=== PATIENT | male | born 1965 | race Caucasian/White ===

== ENCOUNTER → 2023-09-06 09:18 | Outpatient (REF) | payer MEDICARE, SELFPAY | LOC: HWRAD 09:18 | PROVIDERS: ATTENDING PHYSICIAN Internal Medicine Hematology & Oncology; FAMILY PHYSICIAN Family Medicine | DX: C91.10 Chronic lymphocytic leukemia of B-cell type not having achieved remission (principal); C83.00 Small cell B-cell lymphoma, unspecified site | CPT/HCPCS: 71260; 74177; Q9967 ==

== ENCOUNTER → 2024-09-28 06:51 | Outpatient (REF) | payer MEDICARE, SELFPAY | LOC: RAD 06:51 | PROVIDERS: ATTENDING PHYSICIAN Internal Medicine Hematology & Oncology; FAMILY PHYSICIAN Family Medicine | DX: C91.10 Chronic lymphocytic leukemia of B-cell type not having achieved remission (principal); C83.00 Small cell B-cell lymphoma, unspecified site | CPT/HCPCS: 71260; 74177; Q9967 ==

== ENCOUNTER 2025-01-24 11:00 | Emergency (ER) | payer MEDICARE, SELFPAY ==
[2025-01-24 11:07] VITALS: BP 151/82
--- NOTE | 2025-01-24 11:35 | EDRN ---
Dr. Murphy in room w/pt.
[2025-01-24 12:00] VITALS: BP 142/96; BMI 42.3
[2025-01-24 12:06] LABS: Hematocrit 42.9 % (39.0-52.0); Hemoglobin 14.0 g/dL (13.0-18.0); Mean Corp Hgb Conc. 32.6 g/dL (33.0-37.0); Mean Corpuscular Volume 81.3 fL (80.0-94.0); Nucleated Red Blood Cells % 0 % (-); Platelet Count 250 10^3/uL (130-400); Red Cell Dist. Width 14.0 % (11.5-14.5)
--- NOTE | 2025-01-24 12:12 | ED.GENMED ---
History of Present Illness
General
Chief Complaint: Skin Problem
Source: patient
Exam Limitations: none
Time Seen by Provider: 01/24/25 11:30
History of Present Illness
History of Present Illness:
See MDM
Past History
Past History
ED Past Medical History: HTN, NIDDM (Borderline) and Other (Microcytic anemia)
ED Past Surgical History: Orthopedic and Other (Left inguinal herniorrhaphy)
Social History
Tobacco: Non-smoker
Alcohol: None
Living: with family
Employment: Employed
Family History
Family History: Other (Breast cancer); Negative Early CAD or CAD
Phy Exam
Physical Exam
Physical Exam:
See MDM
Sepsis
Sepsis Screening
Sepsis Assessment: Sepsis Ruled Out
Sepsis Screen
Sepsis Screen: Sepsis Ruled Out
Date: 01/24/25
Time: 12:54
Course
Orders/Labs/Results
Orders:
Orders
01/24/25 12:00
Complete Blood Count/With Diff Urgent
Comprehensive Metabolic Panel Urgent
01/24/25 12:13
Clindamycin 600 mg/50 ml [Cleocin] 600 mg in 50 ml IV NOW
Abnormal Lab Results
01/24/25
12:00
MCH 26.5 L pg
(27.0-31.0)
MCHC 32.6 L g/dL
(33.0-37.0)
Lymphocytes % 17.1 L %
(20.5-51.1)
Glucose 143 H mg/dl
(70-99)
01/24/25 12:00
01/24/25 12:00
Vital Signs
Initial and Last Documented VS:
Initial Vital Signs
Temp Pulse Resp BP Pulse Ox
98.2 F 65 18 151/82 97
01/24/25 11:07 01/24/25 11:07 01/24/25 11:07 01/24/25 11:07 01/24/25 11:07
Last Documented Vital Signs
Temp Pulse Resp BP Pulse Ox
98.2 F 65 16 142/96 97
01/24/25 11:07 01/24/25 12:00 01/24/25 12:00 01/24/25 12:00 01/24/25 12:14
MDM/Problems Addressed
Differential Diagnosis Includes:
Note:
CHIEF COMPLAINT(S)
Dog bite to the hand.
HISTORY OF PRESENT ILLNESS
The patient is a 59-year-old male who presents following a dog bite sustained while attempting to separate his dog from another dog. The incident occurred on Saturday. The patient initially managed the bite with doxycycline and mupirocin cream as
prescribed by his primary care physician, Dr. Liam Bill. Despite antibiotic therapy, he reports that the infection has worsened. The most affected site involves multiple puncture wounds on his hand, with one particularly concerning wound. The
patient describes experiencing a little pressure pain but denies significant swelling or auto-flexion that would indicate flexor tenosynovitis. The patient reports an allergy to penicillin, having experienced severe reactions in childhood,
characterized by hives and throat swelling. Previous notes indicate a reaction to amoxicillin resulting in rash and swelling.
ALLERGIES
Penicillin: Severe reaction causing hives and throat tightening.
Amoxicillin: Rash and swelling.
MEDICATIONS
Doxycycline
Mupirocin cream
PHYSICAL EXAM
General: Alert, no acute distress.
Skin: Warm, dry.
Head: Normocephalic, atraumatic
Neck: Appears supple, trachea midline.
Eyes, Ears, Nose, Mouth, and Throat: Oral mucosa moist.
Cardiovascular: No signs of cyanosis
Respiratory: Respirations are non-labored.
Abdomen: Non-distended
Musculoskeletal: Small cut to pulp of his ring finger but no cellulitic changes. Very mild swelling to the base of the ring finger digit but he has no [place] signs. The finger is otherwise neurovascularly intact
Neurological: No focal neurological deficit observed.
Psychiatric: Cooperative, appropriate mood and affect.
PLAN
1. Administer a dose of IV clindamycin to manage the infection due to penicillin and amoxicillin allergies.
2. Prescribe clindamycin for ongoing antibiotic therapy.
3. Referral to field applications specialist Dr. Tony Cardoza for further evaluation of the hand.
4. Monitor for any signs of worsening infection or development of flexor tenosynovitis.
DIFFERENTIAL DIAGNOSIS
The Differential Diagnosis includes, in no particular order and is not limited to:
1. Cellulitis
2. Deep space infection
3. Flexor tenosynovitis
4. Osteomyelitis
5. Bite wound infection
6. Abscess formation
7. Septic arthritis
8. Allergic reaction to medication
9. Tendon laceration
10. Foreign body infection
SUMMARY OF ENCOUNTER
The patient is a 59-year-old male presenting to the emergency department due to a worsening infection from a dog bite to the hand. The patient had been managing the bite with doxycycline and mupirocin cream as prescribed but reported a worsening
condition. Given his allergy to penicillin and amoxicillin, a decision was made to administer IV clindamycin to manage the infection. During reassessment, the patient continued to appear well. The risks, particularly, the potential for developing
flexor tenosynovitis, were discussed with the patient.
ASSESSMENT
The patient is at risk for a worsening infection with a specific concern for the development of flexor tenosynovitis and other bite-related complications.
EMERGENCY TREATMENTS ADMINISTERED
IV clindamycin was administered due to the patients penicillin and amoxicillin allergies.
PLAN
1. Transition from doxycycline to clindamycin for ongoing antibiotic therapy.
2. Educated patient about recognizing signs of worsening infection or flexor tenosynovitis.
3. Referral to an field applications specialist for evaluation and management of potential complications in the hand.
FOLLOW-UP INSTRUCTIONS
The patient was advised to follow up with an field applications specialist promptly for further assessment and management of his hand condition.
MEDICATION RECONCILIATION
1. Clindamycin - administered as an IV dose in the emergency department.
2. Clindamycin - prescribed for outpatient antibiotic therapy.
MEDICAL DECISION MAKING
- Number and Complexity of Problems Addressed: The patients existing allergic reactions to penicillin and amoxicillin affected the choice of antibiotic therapy. The differential diagnosis included cellulitis, deep space infection, flexor
tenosynovitis, osteomyelitis, bite wound infection, abscess formation, septic arthritis, allergic reaction to medication, tendon laceration, and foreign body infection.
- Data:
Category 1: The patients history of penicillin and amoxicillin allergies were reviewed to tailor antibiotic therapy appropriately.
Category 2: No independent radiology tests were required; management centered on antibiotic adjustment and specialist referral.
Category 3: A discussion about management and potential risks, including the development of flexor tenosynovitis, was held with the patient.
-Risk: The patient was educated on recognizing signs of worsening infections and the importance of follow-up with orthopedics, given the complexities associated with bite wounds and infection risk.
DIAGNOSIS
1. L03.113 - Cellulitis of right upper limb due to dog bite
2. T19.1XXA - Foreign body in right hand, initial encounter
*Pulse Oximetry
SaO2: 97
Oxygen Mode of Delivery: Room air
Patient hypoxic: no
*Critical Care Note
Total Time (30-74mins, 75-104mins- exclusive of procedures): Not Applicable
ED Attending Note
-
Portions of this chart may have been created with voice recognition software.� Occasional wrong word or��sound alike� substitutions may have occurred due to the inherent limitations of voice recognition software.
Discharge Plan
Departure
Patient Disposition: Home (Routine Discharge)
Date of Disposition: 01/24/25
Time of Disposition: 12:49
Patient with high blood pressure during this ER visit?: Yes
Discharge Problem:
Finger infection
Instructions: Cellulitis (Skin Infection), Adult (DC)
Prescriptions:
New
clindamycin HCl 300 mg capsule
300 mg PO TID 7 Days Qty: 21 0RF
No Action
atenolol 100 MG tablet
100 mg PO HS
nifedipine 30 MG tablet extended release
30 mg PO DAILY
aspirin 81 MG tablet,delayed release (DR/EC)
81 mg PO DAILY
baclofen 10 MG tablet
10 mg PO PRN PRN (Reason: muscle spasms)
ibuprofen 600 MG tablet
600 mg PO Q6HPRN PRN (Reason: pain)
geriatric [id number] [Spectravite Senior] 1 EACH tablet
1 ea PO
saw palmetto 450 MG capsule
450 mg PO .@1700
Referrals:
Tony Cardoza MD [Active, Orthopedics]
Lawrence Bill DO [Family Provider]
Activity Restrictions/Additional Instructions:
Watch for worsening signs of infection: fever over 100.5', increasing pain, red streaks around wound, swelling, or increasing drainage of pus. If any of these happen, return to ED promptly. Make sure that you take all your antibiotics as directed
and finish your prescription even if you feel better before the bottle is empty
You may return at any time if you have further concerns.
Please follow up with the orthopedist at the first available appointment, preferably this week.
Thank you for choosing [facility].
Interventions
Interventions:
*Risk Screen - Suicide Last Done: 01/24/25 11:07
*General Assessment Last Done: 01/24/25 12:00
*Neglect/Abuse Screening Last Done: 01/24/25 12:00
*ED- Fall Risk Assessment Last Done: 01/24/25 12:00
*ED COVID-19 Vaccine History Last Done: 01/24/25 12:00
ED-Skin Assessment Last Done: 01/24/25 12:00
Discharge Date and Time
Print Language: ICELANDIC
--- NOTE | 2025-01-24 12:17 | EDRN ---
Pharmacy called to mix and send clindamycin.
[2025-01-24 12:21] LABS: ALT (SGPT) 22 U/L (0-50); AST (SGOT) 22 U/L (17-59); Albumin 4.6 g/dl (3.5-5.0); Alkaline Phosphatase 47 U/L (38-126); Blood Urea Nitrogen 14 mg/dl (9-20); Calcium 9.6 mg/dl (8.4-10.2); Carbon Dioxide 26 mmol/L (22-30); Chloride 107 mmol/L (98-107); Glucose 143 mg/dl (70-99); Potassium 4.4 mmol/L (3.5-5.1); Sodium 141 mmol/L (135-145); Total Protein 7.4 g/dl (6.3-8.2); eGFR > 60.00
[2025-01-24] MEDS: CLEOCIN 50 IV (12:35)
== END 2025-01-24 13:03 | disposition home or self-care (01) ==
LOC: EMR 11:00
PROVIDERS: EMERGENCY PHYSICIAN Student in an Organized Health Care Education/Training Program; FAMILY PHYSICIAN Family Medicine
DX: L08.9 Local infection of the skin and subcutaneous tissue, unspecified (principal); I10 Essential (primary) hypertension; R73.03 Prediabetes; W54.0XXA Bitten by dog, initial encounter; Z88.0 Allergy status to penicillin; Z88.8 Allergy status to other drugs, medicaments and biological substances; Z79.82 Long term (current) use of aspirin
CPT/HCPCS: 99284; 96365; 80053; 85025

== ENCOUNTER 2025-01-24 23:11 | Inpatient (IN) | payer MEDICARE, SELFPAY ==
[2025-01-24 20:56] VITALS: BP 172/96
[2025-01-24 21:30] VITALS: BMI 42.9
--- NOTE | 2025-01-24 22:10 | ED.SKININJ ---
HPI-Injury
General
Chief Complaint: Bite
Source: patient
Time Seen by Provider: 01/24/25 21:29
History of Present Illness-Injury
Initial Injury comments:
Note:
CHIEF COMPLAINT(S)
Dog bite on left hand with increased swelling and redness.
HISTORY OF PRESENT ILLNESS
The patient is a 59-year-old male who presents with a dog bite to his left hand sustained on Saturday while breaking up a fight between his dog and another dog. He reports being bitten in four places on the left hand. The most concerning bite is on
the left fourth finger, described as deeper with increasing swelling and redness. Initial management included doxycycline 100 mg twice daily prescribed by his primary care physician and subsequent clindamycin after evaluation at urgent care, where
an X-ray was performed to rule out bony injury. The patient has a known penicillin allergy. Despite oral antibiotics, swelling has progressed rapidly, prompting the current ER visit. The patient denies any fever and has been monitoring his
temperature regularly, with no reported elevations. There is swelling on the palm, with some redness extending beyond the metacarpophalangeal joint, but no pain with passive extension or palpation of the flexor tendon.
ADDITIONAL HISTORY OBTAINED FROM SOURCES OTHER THAN THE PATIENT
According to urgent care records and discussions with Dr. Murphy, the patient was recommended to receive further evaluation and treatment due to concerns about the severity of the infection and potential flexor tenosynovitis.
SOCIAL DETERMINANTS AFFECTING HEALTH
The patient discussed handling responsibilities related to the dog attack, indicating potential family stress as a factor in health management decisions.
MEDICATIONS
- Doxycycline 100 mg twice daily
- Clindamycin (current dosage and exact time of last dose not specified)
REVIEW OF SYSTEMS
- Skin: Redness and swelling at the site of the dog bite on the left hand; no other systemic skin issues reported
- Musculoskeletal: Reports swelling in the palm of the left hand with increased redness; denies pain with passive finger movement
- General: Denies fever; monitoring shows no temperature elevation
PHYSICAL EXAM
General: Alert, no acute distress.
Skin: Warm, dry. Notable for swelling and redness on the left fourth digit, extending past the metacarpophalangeal joint.
Head: Normocephalic, atraumatic.
Neck: Supple, trachea midline.
Eye Ears, nose, mouth and throat: Oral mucosa moist.
Cardiovascular: Normal peripheral perfusion, no edema.
Respiratory: Respirations are non-labored.
Gastrointestinal: Abdomen nondistended.
Back: Normal range of motion, normal alignment.
Musculoskeletal: Redness and swelling noted over the left fourth digit without pain on passive extension or palpation of flexor tendon. Normal digits otherwise.
Neurological: Alert and oriented to person, place, time, and situation. No focal neurological deficit observed.
Psychiatric: Cooperative, appropriate mood & affect.
PROBLEM LIST
Acute Problems:
- Dog bite to the left hand
- Potential infection, possible flexor tenosynovitis
PLAN
1. Hospital admission for intravenous antibiotic therapy to ensure better delivery and effectiveness (considered due to increased swelling and redness despite oral antibiotics).
2. Monitor infection closely with regular assessments of swelling and redness to determine the effectiveness of IV antibiotics.
3. Consult infectious disease and orthopedics if significant changes are observed during monitoring.
4. Consider allergy testing for penicillin in the future to confirm current allergy status, given its implications for treatment options.
DIFFERENTIAL DIAGNOSIS
The Differential Diagnosis includes, in no particular order and is not limited to:
1. Cellulitis
2. Abscess formation
3. Flexor tenosynovitis
4. Foreign body
5. Septic arthritis
6. Osteomyelitis
7. Tendon injury
8. Bite wound infection
9. Soft tissue infection
10. Joint infection (Pyogenic arthritis)
Disposition:
SUMMARY OF ENCOUNTER
The patient, a 59-year-old male, presented to the emergency department with worsening swelling and redness of his left hand due to a dog bite sustained several days ago. Initial management with oral antibiotics, doxycycline. was then switched to
clindamycin today. Despite this, the patient experienced increasing symptoms, particularly increased swelling of the left fourth finger. Since the swelling has progressed despite treatment, intravenous antibiotics were considered necessary to
ensure therapeutic efficacy. The patient received a dose of clindamycin earlier and will be started on levofloxacin in addition to clindamycin for comprehensive antibiotic coverage and admitted for close monitoring. Prior to this was only on single
regimen coverage. May benefit from hand surgery evaluation if symptoms progress
DISPOSITION
Admit
PLAN
1. Admission to hospital for intravenous antibiotic therapy including levofloxacin in addition to previously administered clindamycin for the treatment of the progressing infection.
2. Regular monitoring of the swelling and redness to assess treatment efficacy and response to medications.
3. Recommendation for consultation with a hand specialist if symptoms do not improve or worsen during hospitalization.
INDEPENDENT REVIEW OF LABS AND INTERPRETATION OF TESTS
My independent review indicates that the patients laboratory results from an external review showed a normal white blood cell count and normal chemistries.
MEDICATION RECONCILIATION
1. Clindamycin (administered earlier in the day).
2. Start intravenous levofloxacin for enhanced antibiotic coverage.
MEDICAL DECISION MAKING
-Complexity of Data Reviewed:
Chronic conditions affecting care include potential infection and possible flexor tenosynovitis. Differential diagnoses considered are cellulitis, abscess formation, flexor tenosynovitis, foreign body presence, septic arthritis, osteomyelitis,
tendon injury, bite wound infection, soft tissue infection, and joint infection (pyogenic arthritis).
-Data:
Category 1:
My independent review of external lab results indicates normal white blood cell count and chemistries.
Category 2:
Clinical information was obtained from urgent care records and discussions with Dr. Murphy.
Category 3:
There is a planned discussion with a hand specialist for potential further evaluation if symptoms worsen during hospital observation.
-Risk:
Prescription medication was prescribed as escalating care to intravenous antibiotics was necessary due to worsening infection signs despite prior oral antibiotic administration. Social determinants of health indicated family stress related to
managing the dog attack incident, which may impact health management decisions.
DIAGNOSIS
1. Dog bite of left hand with infection, possible flexor tenosynovitis - ICD-10: S61.059A
2. Bite wound infection, left hand - ICD-10: T14.8
Past History
Past History
ED Past Medical History: HTN, NIDDM (Borderline) and Other (Microcytic anemia)
ED Past Surgical History: Orthopedic and Other (Left inguinal herniorrhaphy)
Social History
Tobacco: Non-smoker
Alcohol: None
Living: with family
Employment: Employed
Family History
Family History: Other (Breast cancer); Negative Early CAD or CAD
Phy Exam
Physical Exam
Physical Exam:
.
Sepsis
Sepsis Screening
Sepsis Assessment: Sepsis Ruled Out
Sepsis Screen
Sepsis Screen: Sepsis Ruled Out
Date: 01/25/25
Time: 02:29
Course
Orders/Labs/Results
Orders:
Orders
01/24/25 22:09
LevoFLOXacin 750 MG/150 ML [Levaquin] 750 mg in 150 ml IV NOW
01/24/25 22:26
Basic Metabolic Panel Urgent
Complete Blood Count/With Diff Urgent
01/24/25 22:48
Admit/Transfer Patient As Directed
Co-Sign Provider:
Level of Care: Inpatient admission
Assign to:: Medical/Surgical
Physician / Group: [facility]
Diagnosis: Dog Bite / Cellulitis
Reason for Hospitalization: Dog Bite / Cellulitis
Expected length of stay greater than two midnights?: Yes
ELOS- Estimated Length of Stay in days: 2
I certify the patient meets the requirements for IP care: Yes
PRN Pain Medication Management As Directed
May give lesser potent ordered pain med per pt: Yes
preference::
Protocol:: Medication orders for pain may be administered in a
manner that supports deferring to patient preference
when the pt is:
- Requesting an ordered lesser potent pain medication.
Least to most potent pain medications are defined
as: acetaminophen < NSAID < tramadol < opioids
(morphine, oxycodone, hydromorphone).
- Requesting a lesser dose of the same medication IF
ORDERED.
- Requesting a less intrusive route of administration
if both routes are prescribed by the provider (PO <
IV).
01/24/25 22:49
Code Status As Directed
Resuscitation Status: Full Code
01/25/25 00:55
Acetaminophen [Tylenol] 650 mg PO Q4HPRN PRN
Clindamycin Phosphate [Cleocin] 300 mg 0.9% Sodium Chloride [Nss] 50 ml IV Q6
Lactated Ringers [Lr] 1,000 ml IV 100 mls/hr
01/25/25 00:55
Activity As Directed
Activity Level: Ambulate
I/O [Intake/ Output] As Directed
Frequency: Per unit guidelines
Pneumatic Compression Sleeves As Directed
Type: Knee high
Vital Signs As Directed
Frequency: Per unit guidelines
DX Deep Vein Thrombosis Video Routine
01/25/25 Breakfast
Regular
Basic Metabolic Panel IN AM
Complete Blood Count/No Diff IN AM
01/25/25 08:00
NIFEdipine EXTENDED RELEASE [Procardia Xl (Extended Release)] 30 mg PO DAILY
01/25/25 18:00
Enoxaparin Sodium [Lovenox] 40 mg SC QPM
01/25/25 22:00
Atenolol [Tenormin] 100 mg PO HS
01/26/25 00:00
LevoFLOXacin 750 MG/150 ML [Levaquin] 750 mg in 150 ml IV Q24H
Abnormal Lab Results
01/24/25
22:26
MCH 26.1 L pg
(27.0-31.0)
MCHC 32.4 L g/dL
(33.0-37.0)
Chloride 108 H mmol/L
(98-107)
Glucose 129 H mg/dl
(70-99)
01/24/25 22:26
01/24/25 22:26
Vital Signs
Initial and Last Documented VS:
Initial Vital Signs
Temp Pulse Resp BP Pulse Ox
98 F 80 20 172/96 96
01/24/25 20:56 01/24/25 20:56 01/24/25 20:56 01/24/25 20:56 01/24/25 20:56
Last Documented Vital Signs
Temp Pulse Resp BP Pulse Ox
98.5 F 61 18 161/80 97
01/25/25 01:00 01/25/25 01:00 01/25/25 01:00 01/25/25 01:00 01/25/25 01:00
*Pulse Oximetry
SaO2: 96
Oxygen Mode of Delivery: Room air
Patient hypoxic: no
*Critical Care Note
Total Time (30-74mins, 75-104mins- exclusive of procedures): Not Applicable
ED Attending Note
-
Portions of this chart may have been created with voice recognition software.� Occasional wrong word or��sound alike� substitutions may have occurred due to the inherent limitations of voice recognition software.
Discharge Plan
Departure
Patient Disposition: Admit
Date of Disposition: 01/24/25
Time of Disposition: 22:13
Admit to: Med/Surg
Presentation/result/management discussed w/ accepting MD/DO: Hospitalist
Discharge Problem:
Dog bite, Infected hand
Interventions
Interventions:
*Risk Screen - Suicide Last Done: 01/25/25 00:59
*General Assessment Last Done: 01/24/25 21:30
*Neglect/Abuse Screening Last Done: 01/24/25 20:56
*ED- Fall Risk Assessment Last Done: 01/24/25 21:30
*ED COVID-19 Vaccine History Last Done: 01/25/25 00:59
*Nursing Disposition Last Done: 01/25/25 00:45
ED-Skin Assessment Last Done: 01/24/25 21:30
Discharge Date and Time
Discharge Date/Time: 01/25/25 00:45
[2025-01-24 22:47] LABS: Hematocrit 40.1 % (39.0-52.0); Hemoglobin 13.0 g/dL (13.0-18.0); Mean Corp Hgb Conc. 32.4 g/dL (33.0-37.0); Mean Corpuscular Volume 80.5 fL (80.0-94.0); Nucleated Red Blood Cells % 0 % (-); Platelet Count 229 10^3/uL (130-400); Red Cell Dist. Width 14.2 % (11.5-14.5)
--- NOTE | 2025-01-24 22:51 | HPS.HSE ---
Family Physician
-
Family Physician: Lawrence Bill
Chief Complaint
-
Finger Pain / Swelling, Dog Bite
History of Present Illness
Patient is a 59y M with PMH significant for CLL and hypertension who presents to ED complaining of pain and swelling in the L hand after recent dog bite. Patient states that he suffered dog bites to both hands on Saturday while disrupting a fight
between his dog and another. He was bitten by the other dog. That dog is reportedly UTD with all vaccinations and is currently being observed / quarantined at home. Patient spoke with his PCP that evening and was prescribed doxycycline, topical
mupirocin and wound wash. Patient noted some chills at home but no recorded fever. Several of the wounds improved; however, the L 4th / ring finger began to have increased pain and swelling. He presented to an Urgent Care for further evaluation
and was referred to the ED. He was seen in the ED this AM and started on clindamycin.
Patient states that the pain and swelling continued to increase throughout the day today - prompting him to return to the ED for further evaluation.
Medical History
Past Medical History
Past Medical History: Reports Other
Additional Past Medical History:
CLL s/p treatment
Hypertension
Past Surgical History: Reports Other
Additional Past Surgical History:
Vein Stripping
Vasectomy
Right Knee Arthroscopy
Herniorrhaphy
Cholecystectomy
Social History
Tobacco: Non-smoker
Alcohol: Occasional
Drug: None
Family History
Family History: Not pertinent
Allergies / Home Medications
Allergies reflects when Allergies were last updated in [facility].
Home Medications with original date entered in [facility]
Allergy/Medication List:
Allergies
Allergy/AdvReac Type Severity Reaction Status Date / Time
Penicillins Allergy Anaphylaxis Verified 01/24/25 21:00
Home Medications
atenolol 100 mg tablet 100 mg PO HS 12/30/12
nifedipine 30 mg tablet,extended release 30 mg PO DAILY 12/30/12
baclofen 10 mg tablet 10 mg PO PRN PRN muscle spasms 03/23/15
ibuprofen 600 mg tablet 600 mg PO Q6HPRN PRN pain 03/23/15
clindamycin HCl 300 mg capsule 300 mg PO TID 7 days #21 caps 01/24/25
Review of Systems
-
History Source: Patient
A 12 point ROS was completed and negative except as noted: Yes
Constitutional: Reports Fatigue and Chills; Denies Fever
Respiratory: Denies Cough or Trouble Breathing
Cardiac: Denies Chest Pain or Palpitations
Abdomen/GI: Denies Abdominal Pain, Nausea, Vomiting or Diarrhea
: Denies Dysuria or Flank Pain
Musculoskeletal: Reports Joint Pain and Edema
Skin: Reports Other (Bite / wound)
Neurological: Denies Dizzy or Headache
Physical Exam
Vital Signs
Vital Signs
Temp Pulse Resp BP Pulse Ox
98 F 80 20 172/96 96
01/24/25 20:56 01/24/25 20:56 01/24/25 20:56 01/24/25 20:56 01/24/25 22:11
Physical Exam
General: Other (59y M in no acute distress.)
Respiratory: Clear; No Wheezes, Rales or Rhonchi
Cardiac: S1/S2 and Regular Rhythm; No Murmur
GI: Soft, Non Tender, Non Distended and Normal Bowel Sounds
Musculoskeletal: No Clubbing and No Cyanosis
Skin: Other (Bite wound to distal aspect of the L 4th finger with surrounding edema and erythema extending proximally into the hand. Wound R thumb / 'snuffbox' without significant surrounding erythema. Other wounds completeley or mostly healed.)
Neuro: AO x 3
Laboratory Results
-
01/24/25 22:26
Impression/Plan
-
A/P: Patient is a 59y M with PMH significant for hypertension and CLL in remission who presents to ED complaining of pain, swelling and redness of the L hand s/p recent dog bite injury.
Dog Bite
Cellulitis of the L > R Hand
- Admit for further evaluation and treatment.
- Progression of symptoms despite course of PO doxy and recent addition of clindamycin.
- With PCN allergy, needs dual coverage - Levaquin / clindamycin started in the ED and will continue.
- IV abx for now and follow for clinical improvement.
- Transition to PO regimen once clinically improving.
- Follow temperature curve and monitor for any new / worsening symptoms.
Benign Hypertension
- Stable. Continue atenolol and nifedipine.
CLL
- In remission. Not on any active treatment.
DVT Prophylaxis: Lovenox
Code Status: Full
[2025-01-24 23:04] LABS: Blood Urea Nitrogen 16 mg/dl (9-20); Calcium 9.3 mg/dl (8.4-10.2); Carbon Dioxide 26 mmol/L (22-30); Chloride 108 mmol/L (98-107); Estimated Creatinine Clearance 124 ml/min; Glucose 129 mg/dl (70-99); Potassium 4.2 mmol/L (3.5-5.1); Sodium 139 mmol/L (135-145); eGFR > 60.00
[2025-01-24] MEDS: LEVAQUIN 150 IV (23:23)
[2025-01-24 23:27] VITALS: BP 143/83
[2025-01-25 01:00] VITALS: BP 161/80; BMI 41.7
[2025-01-25] MEDS: TYLENOL 650 MG PO ×2 (01:22→21:13)
[2025-01-25] MEDS: LR 1000 IV ×2 (01:22→12:09)
[2025-01-25] MEDS: CLEOCIN 52 MG IV ×3 (01:31→13:48)
[2025-01-25 08:08] VITALS: BP 160/91
[2025-01-25 08:09] LABS: Hematocrit 40.2 % (39.0-52.0); Hemoglobin 13.0 g/dL (13.0-18.0); Mean Corp Hgb Conc. 32.3 g/dL (33.0-37.0); Mean Corpuscular Volume 81.9 fL (80.0-94.0); Platelet Count 233 10^3/uL (130-400); Red Cell Dist. Width 14.0 % (11.5-14.5)
[2025-01-25 08:40] LABS: Blood Urea Nitrogen 14 mg/dl (9-20); Calcium 9.2 mg/dl (8.4-10.2); Carbon Dioxide 28 mmol/L (22-30); Chloride 106 mmol/L (98-107); Estimated Creatinine Clearance > 125 ml/min; Glucose 105 mg/dl (70-99); Potassium 4.5 mmol/L (3.5-5.1); Sodium 140 mmol/L (135-145); eGFR > 60.00
[2025-01-25] MEDS: PROCARDIA XL (EXTENDED RELEASE) 30 MG PO (09:28)
--- NOTE | 2025-01-25 14:23 | CON.ID ---
Consultation
-
Date/Time Consultation Requested: 01/25/2025 0926
Date/Time Consultation Performed: 01/25/2025 1424
Requesting Provider: Dr. Carpio
Performing Provider: Dr. Paul
Reason for Consultation: Hand infection
Chief Complaint / Past History
History of Present Illness
Nadeem Pate is a 59-year-old man with a significant medical history of type 2 diabetes and CLL being evaluated in infectious disease consultation for a dog bite to the hands. History is obtained from chart review: patient interview.
The patient reports that 6 days ago he was out working in his yard when a dog from down the street broke off of its leash and attacked his dog. As he was attempting to separate the dogs, dog from down the street bit him on several areas, including
his right fourth finger, left thumb and left fourth finger. Following the bite, he contacted his PCP who prescribed doxycycline. Over the next several days, he noted that the hand initially improved, then became more swollen. He was seen at a
local urgent care yesterday, but sent on to the ER for further evaluation. In the ER he received a dose of antibiotics, and he was discharged on clindamycin. Once home, he noted increasing swelling of the left fourth finger and presented back to
the emergency room for further evaluation. Here he was placed on levofloxacin and clindamycin was continued. Infectious Diseases asked to comment upon further antimicrobial therapy.
At the present time, the patient notes that the left fourth finger is feeling somewhat improved, although still has discomfort in both the distal pad area and the proximal phalangeal area. He denies any fevers, but noted some prior chills. He has
noted no erythema going up his hand or onto his forearm. He denies any axillary adenopathy.
The other dog was captured by [employer] and is up-to-date on its rabies shot. In the ER, the patient received a tetanus booster.
Past History
Additional Past Medical History:
HTN
DM type II
Microcytic anemia
CLL
Additional Past Surgical History:
Left inguinal hernia repair
Allergy History:
Penicillins Allergy (Verified 01/24/25 21:00)
Anaphylaxis
Medications Reviewed: Yes
Current Antibiotics:
Clindamycin 300 mg IV q.6 hours
Levofloxacin 750 mg q.24 hours
Social History
Tobacco: Non-Smoker
Alcohol: None
Drug: None
Personal:
Living: With Family
Employment: Retired
Family History
Family History: Not Pertinent
Review of Systems
Vital Signs
Temp Pulse Resp BP Pulse Ox
97.6 F 62 18 160/91 98
01/25/25 08:08 01/25/25 09:28 01/25/25 08:08 01/25/25 09:28 01/25/25 08:08
Physical Exam
Physical Exam
Constitutional: No Acute Distress, Comfortable and Non-toxic
Eyes: No Conjunctival Hemorrhage and Sclera Anicteric
Oral: No Thrush and No Ulcers
Cardiovascular: Regular Rate and S1/S2; Negative S3/S4
Pulmonary: Clear; Negative Wheezes, Rales or Rhonchi
Gastrointestinal: Soft, Non Tender and Non Distended
Extremities: Other (Swelling of the distal and proximal phalanges of the left fourth digit. Minimal to no significant erythema. Mild tenderness with palpation. No open wounds or drainage.)
Neurological: Awake and Alert
Psychological: Calm
Lab / Diagnostic Study Results
01/25/25 07:42
01/25/25 07:42
Abs Immat Gran (auto) 0.0 10^3/uL (0-0.05) 01/24/25 22:26
Absolute Neuts (auto) 4.5 10^3/uL (1.4-6.5) 01/24/25 22:26
Absolute Lymphs (auto) 1.6 10^3/uL (1.2-3.4) 01/24/25 22:26
Absolute Monos (auto) 0.6 10^3/uL (0.1-0.6) 01/24/25 22:
Absolute Basos (auto) 0.1 10^3/uL (0-0.2) 01/24/25:
Immature Gran % 0.3 % (0-0.5) 01/24/25:
Neutrophils % 64.7 % (42.2-75.2) 01/24/25:
Lymphocytes % 22.7 % (20.5-51.1) 01/24/25:
Monocytes % 8.3 % (1.7-9.3) 01/24/25:
Eosinophils % 3.3 % (0-6) 01/24/25:
Basophils % 0.7 % (0-2) 01/24/25:
Microbiology Results
Imaging:
X-ray hand: no fracture. No foreign body. Film performed at urgent care. Report reviewed.
Assessment / Plan
Dog bite to bilateral hands.
Cellulitis left fourth digit
- No improvement despite 5 days doxycycline
HTN
DM type II
Microcytic anemia
CLL
Recommendations:
Continue with levofloxacin and clindamycin. Will transition to oral route as bioavailability is equivalent.
Upper extremity elevation to facilitate lymphatic drainage and prevent edema.
Local care to wounds. At present wounds appear crusted, and there is no active drainage.
--- NOTE | 2025-01-25 14:46 | W.PN.HOSP.TC ---
Today's Communication/Plan
-
IV AB
Assessment / Plan
Assessment / Plan
59-year-old with pain and swelling of the left hand after dog bite. He suffered from dog bites to both hands on Saturday. Patient was prescribed doxycycline and topical mupirocin by PCP. He noted some chills at home but no fever. Left fourth
finger with an increased swelling presented to urgent care and was sent to ER.
Dog bite wounds on the thumb on the right and ring finger on the left. Mild pain at the ring finger base.
Left ring finger and right thumb with dog bite
chest CTA
CVS S1 S2 Normal.
# Dog bite cellulitis left more than right hand
Was on p.o. doxycycline with recent addition of clindamycin
Penicillin allergy-continue Levaquin and clindamycin
ID eval appreciated
# Hypertension-continue atenolol and nifedipine
# CLL in remission not on active treatment. Follows up with [facility]
# Diet-controlled diabetes-check hemoglobin A1c
# Diverticulosis
# Enlarged prostate
# Obesity per BMI criteria
# DVT prophylax-Lovenox
# Full code
Part of this note was created using voice recognition system. Occasional wrong word or��sound alike� substitutions may have inadvertently occurred due to the inherent limitations of voice recognition software. If noted kindly bring it to my
attention for correction.
Anticipated Discharge: Within 24 hours
Subjective/Interval History
-
Date of Service: January 25, 2025
Objective Data
-
Labs:
Laboratory Results
01/25/25
07:42
WBC 6.6
Hgb 13.0
Hct 40.2
Plt Count 233
Sodium 140
Potassium 4.5
Chloride 106
Carbon Dioxide 28
BUN 14
Creatinine 0.9
Glucose 105 H
Calcium 9.2
Vital Signs:
Vital Signs
Temp Pulse Resp BP Pulse Ox
97.6 F 62 18 160/91 98
01/25/25 08:08 01/25/25 09:28 01/25/25 08:08 01/25/25 09:28 01/25/25 08:08
[2025-01-25 15:19] LABS: Glycohemoglobin (HgbA1c) 6.2 % (4.0-5.6)
--- NOTE | 2025-01-25 15:21 | CM ---
Addendum entered by Jeny Schuster 01/25/25 15:25:
Patient requesting daughter, Maria De Jesus, to be added as a contact. Updated Romy/admissions
Original Note:
Patient seen bedside w/ daughterMaria De Jesus. Initial assessment completed. Patient is a 59y M with PMH significant for CLL and hypertension who presents to ED complaining of pain and swelling in the L hand after recent dog bite. On IV abx.
Patient resides w/ spouse and daughters in a multi level home. Patient is independent in all areas. No DME reported. No therapy hx.
Address, points of contact and insurance verified
PCP: Lawrence Bill
Pharmacy: [facility]
Plan: Home, no needs. Will transition to po abx
[2025-01-25 16:23] VITALS: BP 158/81
[2025-01-25] MEDS: LOVENOX 40 MG SC (17:19)
[2025-01-25] MEDS: CLEOCIN 300 MG PO ×2 (17:19→23:13)
[2025-01-25 23:22] VITALS: BP 144/83
[2025-01-26] MEDS: CLEOCIN 300 MG PO ×3 (05:39→17:01)
[2025-01-26 07:31] VITALS: BP 141/80
[2025-01-26] MEDS: PROCARDIA XL (EXTENDED RELEASE) 30 MG PO (08:25)
[2025-01-26] MEDS: LEVAQUIN 750 MG PO (08:26)
--- NOTE | 2025-01-26 15:13 | W.PN.ID1 ---
Date of Service
Date of Service: January 26, 2025
Today's Communication
Continue current antibiotics.
Assessment / Plan
Dog bite to bilateral hands.
Cellulitis left fourth digit
- No improvement despite 5 days doxycycline
HTN
DM type II
Microcytic anemia
CLL
Recommendations:
Continue with oral levofloxacin and clindamycin for an additional 7 days.
Upper extremity elevation to facilitate lymphatic drainage and prevent edema.
Local care to wounds. At present wounds appear crusted, and there is no active drainage.
No objection to discharge from a Infectious Disease standpoint.
Subjective / Review of Systems
Review of Systems: No Fever and No Chills
Vital Signs / Physical Exam
Vital Signs
Vital Signs
Temp Pulse Resp BP Pulse Ox
98.5 F 65 18 141/80 97
01/26/25 07:31 01/26/25 08:25 01/26/25 07:31 01/26/25 08:25 01/25/25 23:22
Physical Exam
Constitutional: No Acute Distress, Comfortable and Non-toxic
Pulmonary: Non Labored
Extremities: Other (Left fourth finger with decreased swelling and tenderness.); Negative Erythema
Objective Data
Lab Data
Lab Results
01/25/25 07:42
01/25/25 07:42
Estimated Creat Clear > 125 ml/min 01/25/25 07:42
Most recent labs reviewed.
Imaging:
X-ray hand: no fracture. No foreign body. Film performed at urgent care. Report reviewed.
Care Review
Plan reviewed with: Physician (Hospitalist)
[2025-01-26 15:49] VITALS: BP 135/61
--- NOTE | 2025-01-26 16:01 | W.PN.HOSP.TC ---
Addendum entered and electronically signed by Rivas Carpio MD 01/26/25 16:27:
Reviewed x-rays with radiology. No fracture or bone changes soft tissue edema noted.
Original Note:
Today's Communication/Plan
-
Discharge
Assessment / Plan
Assessment / Plan
59-year-old with pain and swelling of the left hand after dog bite. He suffered from dog bites to both hands on Saturday. Patient was prescribed doxycycline and topical mupirocin by PCP. He noted some chills at home but no fever. Left fourth
finger with an increased swelling presented to urgent care and was sent to ER.
Dog bite wounds on the thumb on the right and ring finger on the left. Mild pain at the ring finger base.
Left ring finger and right thumb with dog bite
chest CTA
CVS S1 S2 Normal.
abdomen- No hernia on Inguinal area. No tenderness
No RLQ tenderness.
# ' Twinge' like pain happened a few times - No hernioa or RLQ tenderness. Advised the patient to keep an eye and if it gets worse to get a CAT scan of the abdomen pelvis. Patient does not have any symptoms at present.
# Dog bite cellulitis left more than right hand
Was on p.o. doxycycline with recent addition of clindamycin
Penicillin allergy-continue Levaquin and clindamycin PO
ID eval appreciated
Called radiology to see if the Xray was downloaded. Unfortunately I am not able to view it despite multiple attempts and contacting multiple people.Requested Radiologist to review the images.
# Mild Navi- Asymptomatic at night- Atenolol decreased to 50 mg
# Hypertension-continue atenolol and nifedipine. Pt was advised to get a BP Monitor and watch BP, If over 150/90 to call PCP to increase Nifedipine to 60 mg. Pt has an appointment coming up with Dr. Chen in February
# CLL in remission not on active treatment. Follows up with [facility]
# Diet-controlled diabetes-check hemoglobin A1c
# Diverticulosis
# Enlarged prostate
# Obesity per BMI criteria
# DVT prophylax-Lovenox
# Full code
Discussed with daughter and at bedside
Discussed with radiology
Discussed with patient's nurse
Discussed with infectious disease
Time spent more than 30 minutes for discharge
Part of this note was created using voice recognition system. Occasional wrong word or��sound alike� substitutions may have inadvertently occurred due to the inherent limitations of voice recognition software. If noted kindly bring it to my
attention for correction.
Anticipated Discharge: Today
Subjective/Interval History
-
Date of Service: January 26, 2025
Objective Data
-
Vital Signs:
Vital Signs
Temp Pulse Resp BP Pulse Ox
98.5 F 65 18 141/80 97
01/26/25 07:31 01/26/25 08:25 01/26/25 07:31 01/26/25 08:25 01/25/25 23:22
I&O
01/25/25 01/26/25 01/27/25
06:59 06:59 06:59
Intake Total 1680 / 1680
Balance 1680 / 1680
--- NOTE | 2025-01-26 16:16 | W.DS.TRANS ---
Addendum entered and electronically signed by Rivas Carpio MD 01/26/25 17:15:
Dictation- [id number]
Original Note:
DC Summary - Closing Manager
-
Discharge Instructions:
Discharge Diagnosis/Procedures Dog bite cellulitis
Hypertension
CLL in remission
Prediabetes
Diverticulosis
Enlarged prostate
Diet As tolerated
Activity As tolerated
Instructions:
Stand-Alone Forms:
Changes to Home Medications: Yes
Discharge Medications:
DC Medications w/original date entered in [facility]
nifedipine 30 mg tablet,extended release 30 mg PO DAILY Blood Pressure 12/30/12
baclofen 10 mg tablet 10 mg PO PRN PRN muscle spasms 03/23/15
acetaminophen 325 mg tablet 650 mg (2 x 325 mg) PO Q4HPRN PRN Mild Pain #0 tabs 01/26/25
atenolol 100 mg tablet 50 mg (1/2 x 100 mg) PO HS Blood Pressure #0 tabs 01/26/25
clindamycin HCl 150 mg capsule 300 mg (2 x 150 mg) PO Q6 Infection #28 caps 01/26/25
levofloxacin 750 mg tablet 750 mg PO DAILY Infection #7 tabs 01/26/25
Home Medication Changes
new
clindamycin HCl 150 mg capsule 300 mg (2 x 150 mg) PO Q6 Infection #28 caps 01/26/25
levofloxacin 750 mg tablet 750 mg PO DAILY Infection #7 tabs 01/26/25
Pending Results: No
== END 2025-01-26 17:33 | disposition home or self-care (01) | DRG 605 ==
LOC: 4 EAST ACU 23:11
PROVIDERS: ADMITTING PHYSICIAN Hospitalist; ATTENDING PHYSICIAN Hospitalist; CONSULT PHYSICIAN Internal Medicine Infectious Disease; EMERGENCY PHYSICIAN Emergency Medicine; FAMILY PHYSICIAN Family Medicine
DX: S61.452A Open bite of left hand, initial encounter (principal); L03.114 Cellulitis of left upper limb; C91.11 Chronic lymphocytic leukemia of B-cell type in remission; L03.113 Cellulitis of right upper limb; Z68.41 Body mass index [BMI] 40.0-44.9, adult; W54.0XXA Bitten by dog, initial encounter; Y93.9 Activity, unspecified; Y92.9 Unspecified place or not applicable; D50.9 Iron deficiency anemia, unspecified; E11.9 Type 2 diabetes mellitus without complications; K57.30 Diverticulosis of large intestine without perforation or abscess without bleeding; N40.0 Benign prostatic hyperplasia without lower urinary tract symptoms; E66.9 Obesity, unspecified; S61.451A Open bite of right hand, initial encounter; I10 Essential (primary) hypertension; Z80.3 Family history of malignant neoplasm of breast; Z88.0 Allergy status to penicillin; Z90.49 Acquired absence of other specified parts of digestive tract
CPT/HCPCS: 80048; 83036; 85025; 85027; 96374; 99285